=== PATIENT | female | born 1955 | race Two or more races ===

== ENCOUNTER 2023-11-14 10:43 | Outpatient (CLI) | payer OTHER | END 2023-11-14 10:46 | disposition home or self-care (01) | LOC: SONOGRAMA 10:43 | PROVIDERS: ATTEND Pathology Anatomic Pathology & Clinical Pathology | DX: D34 Benign neoplasm of thyroid gland (principal); D44.0 Neoplasm of uncertain behavior of thyroid gland; E07.89 Other specified disorders of thyroid; E04.2 Nontoxic multinodular goiter ==

== ENCOUNTER 2024-05-07 14:18 | Outpatient (CLI) | payer OTHER | END 2024-05-07 14:20 | disposition home or self-care (01) | LOC: SONOGRAMA 14:18 | PROVIDERS: ATTEND Pathology Anatomic Pathology & Clinical Pathology | DX: E04.2 Nontoxic multinodular goiter (principal); D44.0 Neoplasm of uncertain behavior of thyroid gland ==